=== PATIENT | female | born 1995 | race African-American/Black ===

== ENCOUNTER 2019-11-28 15:49 | Emergency (ER) | payer MEDICAID ==
[~2019-11-28] VITALS: Ht 157.5 cm; Wt 80.0 kg
[~2019-11-28 15:49] MED LIST: PREN-55 PO
[2019-11-28 18:02] VITALS: BP 102/71
== END 2019-11-28 21:40 | disposition left against medical advice (07) ==
LOC: ER 15:49
DX: R07.0 Pain in throat (principal); Z53.21 Procedure and treatment not carried out due to patient leaving prior to being seen by health care provider